=== PATIENT | male | born 1975 | race African-American/Black ===

== ENCOUNTER 2018-07-14 10:56 | Inpatient (IN) | payer BC ==
[2018-07-14] MEDS: IPRATROPIUM (NEB) 0.5 MG/2.5 ML AMP INH (11:08)
[2018-07-14] MEDS: ALBUTEROL 0.5% (NEB) 2.5 MG/0.5 ML AMP INH (11:08)
[2018-07-14 11:11] LABS: ADD MAN DIFF? NO
[2018-07-14] MEDS: SODIUM CHLORIDE 0.9% 1L BAG IV* (11:11)
[2018-07-14] MEDS: MAGNESIUM SULFATE 2 GM/50 ML 50 ML IVPB (11:12)
[2018-07-14] MEDS: METHYLPREDNISOLONE 125 MG INJ IV (11:12)
[2018-07-14 11:13] LABS: WHITE BLOOD COUNT 8.9 10^3/ul (4.8-10.8)
[2018-07-14 11:13] LABS: BASOPHILS % 0.2 % (0.0-2.0); EOSINOPHILS # 0.2 10^3/ul (0.0-0.5); EOSINOPHILS % 2.7 % (0.0-7.0); HEMATOCRIT 39.8 % (42.0-52.0); HEMOGLOBIN 12.4 g/dl (14.0-18.0); LYMPHOCYTES # 2.7 10^3/ul (0.8-2.9); LYMPHOCYTES % 30.2 % (15.0-51.0); MEAN CORPUSCULAR HEMOGLOBIN 28.5 pg (29.0-33.0); MEAN CORPUSCULAR HGB CONC 31.2 g/dl (32.0-37.0); MEAN CORPUSCULAR VOLUME 91.5 fl (82.0-101.0); MEAN PLATELET VOLUME 10.1 fl (7.4-10.4); MONOCYTE # 0.7 10^3/ul (0.3-0.9); MONOCYTES % 8.3 % (0.0-11.0); NEUTROPHIL # 5.2 10^3/ul (1.6-7.5); NEUTROPHILS % 57.9 % (39.0-77.0); PLATELET COUNT 266 10^3/UL (140-415); RED BLOOD COUNT 4.35 10^6/ul (4.70-6.10); RED CELL DISTRIBUTION WIDTH 13.1 % (11.5-14.5)
[2018-07-14 11:36] LABS: INR 0.95; PARTIAL THROMBOPLASTIN TIME 28.1 Sec (25.0-35.0); PROTIME 12.8 Sec (11.9-14.9)
[2018-07-14 11:39] LABS: ALANINE AMINOTRANSFERASE 30 IU/L (13-69)
[2018-07-14 11:44] LABS: ANION GAP 18 (8-16); CARBON DIOXIDE 21 mmol/L (21-31); CHLORIDE 104 mmol/L (97-110); GLUCOSE 239 mg/dl (70-220); POTASSIUM 4.4 mmol/L (3.5-5.1); SODIUM 139 mmol/L (135-144)
[2018-07-14 11:45] LABS: ALBUMIN 3.6 g/dl (3.3-4.9); ALBUMIN/GLOBULIN RATIO 1.12; ALKALINE PHOSPHATASE 59 IU/L (42-121); AMYLASE 60 U/L (11-123); ASPARTATE AMINO TRANSFERASE 43 IU/L (15-46); BILIRUBIN,INDIRECT 0.4 mg/dl (0-1.1); BILIRUBIN,TOTAL 0.4 mg/dl (0.2-1.3); BLOOD UREA NITROGEN 9 mg/dl (7-20); CALCIUM 8.9 mg/dl (8.4-10.2); CREATININE 1.03 mg/dl (0.61-1.24); ETHANOL < 10.0 mg/dl; LIPASE 51 U/L (23-300); TOTAL PROTEIN 6.8 g/dl (6.1-8.1)
[2018-07-14 11:54] LABS: LACTIC ACID 5.1 mmol/L (0.5-2.0)
[2018-07-14 12:01] LABS: TROPONIN-I < 0.012 ng/ml (0.000-0.120)
[2018-07-14 12:18] LABS: ADD UMIC YES; UR ASCORBIC ACID 20 mg/dL (NEGATIVE); UR BILIRUBIN (Dip) NEGATIVE (NEGATIVE); UR BLOOD (Dip) NEGATIVE (NEGATIVE); UR BUDDING YEAST FEW /HPF (NONE SEEN); UR CLARITY SLIGHTLY CLOUDY (CLEAR); UR COLOR YELLOW (YELLOW); UR GLUCOSE (Dip) 3+ mg/dL (NEGATIVE); UR KETONES (Dip) NEGATIVE (NEGATIVE); UR LEUKOCYTE ESTERASE (Dip) NEGATIVE Leu/ul (NEGATIVE); UR MUCUS FEW /HPF (NONE SEEN); UR NITRITE (Dip) NEGATIVE (NEGATIVE); UR RBC 3 /HPF (0-5); UR TOTAL PROTEIN (Dip) 2+ mg/dl (NEGATIVE); UR UROBILINOGEN (Dip) NEGATIVE (NEGATIVE); UR WBC 7 /HPF (0-5)
[2018-07-14 12:37] LABS: AMPHETAMINE/METHAMPHETAMINE POSITIVE (NEGATIVE); BARBITURATES NEGATIVE (NEGATIVE); BENZODIAZEPINES NEGATIVE (NEGATIVE); CANNABINOIDS POSITIVE (NEGATIVE); COCAINE NEGATIVE (NEGATIVE); OPIATES NEGATIVE (NEGATIVE)
[2018-07-14] MEDS ORDERED: ACETAMINOPHEN 325 MG TAB PO ×2 (13:00→13:30)
[2018-07-14] MEDS ORDERED: ONDANSETRON 4 MG INJ IV ×2 (13:00→13:30)
[2018-07-14] MEDS ORDERED: CEFEPIME 2GM/50 ML (PMX) 50 ML IVPB (13:16)
[2018-07-14 13:20] LABS: LACTIC ACID 1.1 mmol/L (0.5-2.0)
[2018-07-14] MEDS ORDERED: VANCOMYCIN 1 GM (PMX) 250 ML IVPB (13:30)
[2018-07-14] MEDS ORDERED: NACL 0.9% 3 ML SYG IV (13:30)
[2018-07-14] MEDS: ESCITALOPRAM 10 MG TAB PO (14:36)
[2018-07-14 14:44] LABS: HEMOGLOBIN A1C 5.4 % (0-5.9)
[2018-07-14] MEDS: ALBUTEROL/IPRATROPIUM (NEB) 3 ML AMP HHN ×3 (14:47→20:59)
[2018-07-14 15:18] LABS: HAAIG REFLEX REFLEX FILED
[2018-07-14 16:16] LABS: HEPATITIS B SURFACE ANTIGEN NEGATIVE (NEGATIVE)
[2018-07-14 16:33] LABS: HEPATITIS B CORE ANTIBODY NEGATIVE (NEGATIVE); HIV 1&2 ANTIBODY NEGATIVE (NEGATIVE)
[2018-07-14 16:34] LABS: HEPATITIS B SURFACE ANTIBODY NEGATIVE (NEGATIVE)
[2018-07-14 16:34] LABS: HEPATITIS C VIRAL ANTIBODY NEGATIVE (NEGATIVE)
[2018-07-14] MEDS: MONTELUKAST 10 MG TAB PO (21:35)
[2018-07-15] MEDS: ALBUTEROL/IPRATROPIUM (NEB) 3 ML AMP HHN ×6 (01:00→21:52)
[2018-07-15] MEDS: ESCITALOPRAM 10 MG TAB PO (08:34)
[2018-07-15] MEDS: predniSONE 20 MG TAB PO (08:35)
[2018-07-15] MEDS: ENOXAPARIN 40 MG/0.4 ML SYG SC (08:36)
[2018-07-15] MEDS: FLUTICASONE/VILANTEROL 200-25 INH DEVICE INH (10:50)
[2018-07-15] MEDS ORDERED: VANCOMYCIN IV PER PHARMACY XX (12:30)
[2018-07-15] MEDS: VANCOMYCIN 2 GM in SOD CHLORIDE 0.9% 500 ML IVPB (15:32)
[2018-07-15] MEDS: MONTELUKAST 10 MG TAB PO (20:59)
[2018-07-16] MEDS: ALBUTEROL/IPRATROPIUM (NEB) 3 ML AMP HHN ×6 (00:24→20:12)
[2018-07-16] MEDS: VANCOMYCIN 1.25 GM in SOD CHLORIDE 0.9% 250 ML IVPB ×2 (01:07→17:26)
[2018-07-16] MEDS: ENOXAPARIN 40 MG/0.4 ML SYG SC (09:00)
[2018-07-16] MEDS: ESCITALOPRAM 10 MG TAB PO (09:42)
[2018-07-16] MEDS: predniSONE 20 MG TAB PO (09:43)
[2018-07-16] MEDS: FLUTICASONE/VILANTEROL 200-25 INH DEVICE INH (09:44)
[2018-07-16] MEDS: MONTELUKAST 10 MG TAB PO (20:33)
[2018-07-17] MEDS: VANCOMYCIN 1.25 GM in SOD CHLORIDE 0.9% 250 ML IVPB ×3 (00:39→17:54)
[2018-07-17] MEDS: ALBUTEROL/IPRATROPIUM (NEB) 3 ML AMP HHN ×7 (01:00→20:33)
[2018-07-17] MEDS: predniSONE 20 MG TAB PO (08:51)
[2018-07-17] MEDS: FLUTICASONE/VILANTEROL 200-25 INH DEVICE INH (08:51)
[2018-07-17] MEDS: ENOXAPARIN 40 MG/0.4 ML SYG SC (08:51)
[2018-07-17] MEDS: ESCITALOPRAM 10 MG TAB PO (08:51)
[2018-07-17 14:54] LABS: BLOOD UREA NITROGEN 16 mg/dl (7-20)
[2018-07-17 14:54] LABS: CREATININE 0.94 mg/dl (0.61-1.24)
[2018-07-17] MEDS: MONTELUKAST 10 MG TAB PO (21:27)
[2018-07-18] MEDS: ALBUTEROL/IPRATROPIUM (NEB) 3 ML AMP HHN ×4 (00:03→13:07)
[2018-07-18] MEDS: VANCOMYCIN 1.25 GM in SOD CHLORIDE 0.9% 250 ML IVPB ×2 (00:50→08:43)
[2018-07-18] MEDS: FLUTICASONE/VILANTEROL 200-25 INH DEVICE INH (08:42)
[2018-07-18] MEDS: ENOXAPARIN 40 MG/0.4 ML SYG SC (08:42)
[2018-07-18] MEDS: ESCITALOPRAM 10 MG TAB PO (08:42)
== END 2018-07-18 13:20 | disposition home or self-care (01) | DRG 202 ==
LOC: E/R 10:56 → 2NE 07-15 18:05 → TEL 12:33
PROVIDERS: Internal Medicine
DX: J45.901 Unspecified asthma with (acute) exacerbation (principal); R78.81 Bacteremia; Z59.0 Homelessness; F15.10 Other stimulant abuse, uncomplicated; F32.9 Major depressive disorder, single episode, unspecified; F12.90 Cannabis use, unspecified, uncomplicated
CPT/HCPCS: 71045; 80053; 80307; 81001; 82150; 82565; 83036; 83605; 83690; 84484; 84520; 85025; 85610; 85730; 86703; 86704; 86706; 86709; 86803; 87040; 87340; 93005; 93306; 94640; 94644; 94660; 94664; 96374; 96375; 99291-25

== ENCOUNTER 2018-08-23 18:58 | Observation (INO) | payer BC ==
[2018-08-23] MEDS: IPRATROPIUM (NEB) 0.5 MG/2.5 ML AMP HHN (19:28)
[2018-08-23] MEDS: ALBUTEROL 0.083% (NEB) 2.5 MG/3 ML AMP HHN (19:28)
[2018-08-23] MEDS: MAGNESIUM SULFATE 2 GM/50 ML 50 ML IVPB (19:52)
[2018-08-23] MEDS: DEXAMETHASONE 10 MG/ML 1 ML INJ IV ×2 (20:09→20:16)
[2018-08-23] MEDS: IPRATROPIUM (NEB) 0.5 MG/2.5 ML AMP INH (20:42)
[2018-08-23] MEDS: ALBUTEROL 0.5% (NEB) 2.5 MG/0.5 ML AMP INH (20:42)
[2018-08-24] MEDS ORDERED: ONDANSETRON 4 MG INJ IV
[2018-08-24] MEDS ORDERED: ACETAMINOPHEN 325 MG TAB PO
[2018-08-24] MEDS ORDERED: IPRATROPIUM (NEB) 0.5 MG/2.5 ML AMP HHN (00:30)
[2018-08-24] MEDS: ALBUTEROL 0.083% (NEB) 2.5 MG/3 ML AMP HHN ×4 (01:39→13:49)
[2018-08-24] MEDS ORDERED: ALBUTEROL HFA 8 GM INHALER INH (05:30)
[2018-08-24 05:53] LABS: ADD MAN DIFF? NO
[2018-08-24 05:57] LABS: ABNORMAL IP MESSAGE 1; BASOPHILS % 0.1 % (0.0-2.0); HEMATOCRIT 38.7 % (42.0-52.0); HEMOGLOBIN 12.5 g/dl (14.0-18.0); LYMPHOCYTES # 0.2 10^3/ul (0.8-2.9); MEAN CORPUSCULAR HEMOGLOBIN 29.1 pg (29.0-33.0); MEAN CORPUSCULAR HGB CONC 32.3 g/dl (32.0-37.0); MEAN CORPUSCULAR VOLUME 90.2 fl (82.0-101.0); MEAN PLATELET VOLUME 11.3 fl (7.4-10.4); MONOCYTE # 0.2 10^3/ul (0.3-0.9); MONOCYTES % 2.5 % (0.0-11.0); NEUTROPHIL # 7.2 10^3/ul (1.6-7.5); PLATELET COUNT 186 10^3/UL (140-415); POSITIVE DIFF @See below; RED BLOOD COUNT 4.29 10^6/ul (4.70-6.10); RED CELL DISTRIBUTION WIDTH 14.1 % (11.5-14.5)
[2018-08-24 05:57] LABS: WHITE BLOOD COUNT 7.7 10^3/ul (4.8-10.8)
[2018-08-24 06:18] LABS: ALANINE AMINOTRANSFERASE 20 IU/L (13-69); ALBUMIN 4.2 g/dl (3.3-4.9); ALBUMIN/GLOBULIN RATIO 1.31; ALKALINE PHOSPHATASE 50 IU/L (42-121); ANION GAP 9 (5-13); ASPARTATE AMINO TRANSFERASE 22 IU/L (15-46); BILIRUBIN,INDIRECT 0.4 mg/dl (0-1.1); BILIRUBIN,TOTAL 0.4 mg/dl (0.2-1.3); BLOOD UREA NITROGEN 13 mg/dl (7-20); CALCIUM 9.5 mg/dl (8.4-10.2); CARBON DIOXIDE 23 mmol/L (21-31); CHLORIDE 107 mmol/L (97-110); Estimated GFR > 60 mL/min (>60); GLUCOSE 164 mg/dl (70-220); POTASSIUM 4.3 mmol/L (3.5-5.1); SODIUM 139 mmol/L (135-144); TOTAL PROTEIN 7.4 g/dl (6.1-8.1)
[2018-08-24 06:28] LABS: MAGNESIUM 2.1 mg/dl (1.7-2.5)
[2018-08-24] MEDS: PANTOPRAZOLE (EC) 40 MG TAB PO (06:28)
[2018-08-24 06:58] LABS: THYROID STIMULATING HORMONE 0.715 MIU/L (0.465-4.680)
[2018-08-24] MEDS: ESCITALOPRAM 10 MG TAB PO (08:48)
[2018-08-24] MEDS: LORATADINE 10 MG TAB PO (08:48)
[2018-08-24] MEDS: predniSONE 20 MG TAB PO (08:48)
[2018-08-24] MEDS: FLUTICASONE/VILANTEROL 100-25 INH (10:49)
[2018-08-24] MEDS ORDERED: MONTELUKAST 10 MG TAB PO (21:00)
== END 2018-08-24 14:45 | disposition home or self-care (01) ==
LOC: PP2 23:40 → FTE 18:58
DX: J45.901 Unspecified asthma with (acute) exacerbation (principal); F32.9 Major depressive disorder, single episode, unspecified; F17.200 Nicotine dependence, unspecified, uncomplicated
CPT/HCPCS: 71045; 80053; 83036; 83735; 84443; 85025; 94640; 94644; 94645; 94664; 96374; 96375; 99285-25